=== PATIENT | male | born 1990 | race Two or more races ===

== ENCOUNTER 2018-10-11 20:36 | Emergency (ER) | payer SELFPAY ==
[~2018-10-11] VITALS: Ht 170.2 cm; Wt 77.1 kg
[2018-10-11 20:57] VITALS: BP 122/69
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
--- NOTE | 2018-10-11 21:59 | NUR ---
SEEN AND EARLINE DONE DR MONTE, WITH ORDERS ENTERED AND CARRIED OUT.
[2018-10-11] MEDS ORDERED: IBUPROFEN 600 MG TABLET PO ONE ×2 (22:30→22:39)
[2018-10-11] MEDS ORDERED: ACETAMINOPHEN 325 MG TABLET PO ONE (22:30)
[2018-10-11] MEDS ORDERED: ACETAMINOPHEN ES 500 MG TABLET ONE (22:39)
== END 2018-10-11 22:49 | disposition home or self-care (01) ==
LOC: ER 20:41
DX: S13.4XXA Sprain of ligaments of cervical spine, initial encounter (principal); V49.49XA Driver injured in collision with other motor vehicles in traffic accident, initial encounter; Y93.89 Activity, other specified; Y92.413 State road as the place of occurrence of the external cause; Y99.8 Other external cause status